=== PATIENT | female | born 1995 ===

== ENCOUNTER 2020-10-24 21:38 | Emergency (ER) | payer MEDICAID ==
[~2020-10-24] VITALS: Ht 162.6 cm; Wt 65.8 kg
[2020-10-24] MEDS ORDERED: ZOLOFT25 MG PO (22:09)
--- OUTSIDE RECORDS SUMMARY | 2020-10-25 00:04 | XMS ---
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 Mansi VISIT COUNT (12 MO.) 2 [facility] Clarissa [address] TOTAL 3 NOTE: Visits indicate total known visits. ED/UCC VISIT TRACKING (12 MO.) 10/24/2020 21:39 [facility] TYPE: Emergency COMPLAINT: - IRREGULAR HEART BEAT, SHAKING 10/23/2020 08:40 [facility] Eduarda HENDERSON TYPE: Emergency DIAGNOSES: - Panic disorder [episodic paroxysmal anxiety] - Anxiety - tachycardia, poss med reaction - Shaking 02/02/2020 19:01 [place]: Emergency DIAGNOSES: - TENT 1. cough, fever, body aches - Fever (9 Weeks To 74 Years) - Generalized Body Aches - Sore Throat - Streptococcal pharyngitis INPATIENT VISIT TRACKING (12 MO.) No inpatient visits to display in this time frame [email or web address]
--- NOTE | 2020-10-25 10:55 | EKG ---
[facility] [address] [facility] [place], [place] [address] Signed Sinus tachycardia Otherwise normal ECG No previous ECGs available Confirmed by FRANKY BRAXTON DO ([id number]) on 10/25/2020 10:55:37 AM Electronically Signed By: FRANKY BRAXTON DO 10/25/20 1055 PATIENT NAME: MASHA CAMARGO Electrocardiogram DATE OF : [birth year] PHYSICIAN: FRANKY BRAXTON DO REPORT #: [id number] REPORT IS CONFIDENTIAL AND NOT TO BE RELEASED WITHOUT AUTHORIZATION
== END 2020-10-24 23:51 | disposition home or self-care (01) ==
LOC: ED 21:38
DX: F41.9 Anxiety disorder, unspecified (principal)
CPT/HCPCS: 93005; 93010; 99283-25